=== PATIENT | male | born 1980 | race Two or more races ===

== ENCOUNTER 2023-12-23 12:23 | Emergency (ER) | payer OTHER ==
[~2023-12-23] VITALS: Ht 172.7 cm; Wt 76.2 kg
[~2023-12-23 12:23] MED LIST: CIPRO500 MG PO; COLACE100 MG PO; DESCOVY 120-151 EACH; DICLOFENAC SODI75 MG PO; FLAGYL500MG PO; PEPCID AC20 MG PO; PERCOCET 5-3251 EACH PO
[2023-12-23] MEDS ORDERED: DEXAMETHASONE SODIUM PHOSPHATE 4 MG/ML VIAL IM STA (12:58)
[2023-12-23] MEDS ORDERED: ORPHENADRINE CITRATE 30 MG/ML AMPUL IM STA (12:58)
[2023-12-23] MEDS ORDERED: KETOROLAC TROMETHAMINE 30 MG VIAL IM STA (15:29)
[2023-12-23] MEDS ORDERED: MEDROLPACK PO (15:36)
[2023-12-23] MEDS ORDERED: CELEBREX200MG PO (15:36)
[2023-12-23] MEDS ORDERED: METAXALONE800 MG PO (15:36)
== END 2023-12-23 15:48 | disposition home or self-care (01) ==
LOC: ER 12:24
DX: M54.50 Low back pain, unspecified (principal); G89.11 Acute pain due to trauma

== ENCOUNTER → 2024-05-07 | Emergency (ER) | payer OTHER ==
[~2024-05-07] MED LIST changes: +CELEBREX200MG PO; +MEDROLPACK PO; +METAXALONE800 MG PO
== END | disposition left against medical advice (07) ==
LOC: ER 17:00
DX: Z53.21 Procedure and treatment not carried out due to patient leaving prior to being seen by health care provider (principal)